=== PATIENT | male | born 1970 | race Caucasian/White ===

== ENCOUNTER 2018-06-11 04:44 | Emergency (ER) | payer OTHER ==
[~2018-06-11] VITALS: Ht 177.8 cm; Wt 104.3 kg
[2018-06-11 04:55] VITALS: BP 126/94; Ht 177.8 cm; Wt 104.3 kg
== END 2018-06-11 05:18 | disposition other institution (70) ==
LOC: ED 04:44
DX: Z02.89 Encounter for other administrative examinations (principal)